=== PATIENT | male | born 2005 | race African-American/Black ===

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

== ENCOUNTER 2024-08-06 12:06 | Emergency (ER) | payer SELFPAY ==
[~2024-08-06] VITALS: Ht 188 cm; Wt 65.8 kg
[2024-08-06 12:18] VITALS: BP 126/81; TEMP 98.1
[2024-08-06] MEDS: TDAP [DIPH/PERTUSSIS/TET] 0.5 ML VIAL IM ONE (13:00)
[2024-08-06] MEDS ORDERED: TDAP [DIPH/PERTUSSIS/TET] 0.5 ML VIAL IM ONE (13:03)
[2024-08-06] MEDS ORDERED: IBUP-1490 PO (14:04)
[2024-08-06 14:13] VITALS: O2SAT 99
== END 2024-08-06 14:14 | disposition home or self-care (01) ==
LOC: ER 12:21
DX: S61.210A Laceration without foreign body of right index finger without damage to nail, initial encounter (principal); W25.XXXA Contact with sharp glass, initial encounter; Y93.89 Activity, other specified; Y92.89 Other specified places as the place of occurrence of the external cause; Y99.8 Other external cause status
CPT/HCPCS: 29130; 73140; 90471; 90715; 99283; A6403